=== PATIENT | male | born 1975 | race Caucasian/White ===

== ENCOUNTER 2022-11-20 17:15 | Outpatient (REF) | payer MEDICAID, SELFPAY ==
[2022-11-20 22:39] LABS: HCT 40.6 % (40.0-50.0); HGB 14.1 g/dL (13.5-17.5); MCH 29.5 pg (27.0-33.0); MCHC 34.7 % (32.0-36.0); MCV 85 fL (80-95); MPV 12.1 fL (8.0-11.0); Platelet Count 157 10^3/uL (130-400); RBC 4.78 10^6/uL (4.36-5.78); RDW 11.9 % (11.8-14.1); RDW-SD 36.5 fL; WBC 5.62 10^3/uL (4.4-10.8)
[2022-11-20 22:56] LABS: ALT 111 U/L (16-63); AST 76 U/L (15-37); Albumin 3.6 g/dL (3.4-5.0); Alkaline Phosphatase 72 U/L (46-116); Anion Gap 6.5 mmol/L (3-11); BUN 21 mg/dL (7-18); Bilirubin, Total 0.3 mg/dL (0.2-1.0); CO2 29.5 mmol/L (21.0-32.0); CREATININE 0.9 mg/dL (0.70-1.30); Calcium 8.9 mg/dL (8.5-10.1); Calculated LDL 81 mg/dL (<100); Chloride 103 mmol/L (98-107); Cholesterol 153 mg/dL (<200); Estimated GFR 106.01 (mL/min/1.73m2); Glucose 121 mg/dL (74-106); HDL Cholesterol 43 mg/dL (40-60); Potassium 3.9 mmol/L (3.5-5.1); Sodium 139 mmol/L (136-145); TSH 1.22 uIU/mL (0.36-3.74); Total Protein 7.3 g/dL (6.4-8.2); Triglyceride 148 mg/dL (<150)
== END 2022-11-20 17:16 | disposition home or self-care (01) ==
LOC: NCHCN 17:15
PROVIDERS: PCP Nurse Practitioner Family; Visit Provider Family Medicine
DX: Z00.00 Encounter for general adult medical examination without abnormal findings (principal); Z13.29 Encounter for screening for other suspected endocrine disorder; Z13.220 Encounter for screening for lipoid disorders
CPT/HCPCS: 80053; 80061; 85027; 84443

== ENCOUNTER 2024-06-04 18:35 | Outpatient (REF) | payer MEDICAID, SELFPAY ==
[2024-06-04 20:57] LABS: Abs Immature Grans 0.04 10^3/uL (0.0-0.06); Absolute Basophil Count 0.02 10^3/uL (0.0-0.2); Absolute Eosinophil Count 0.07 10^3/uL (0.0-0.7); Absolute Lymphocyte Count 0.76 10^3/uL (1.2-3.4); Absolute Monocyte Count 0.85 10^3/uL (0.1-0.8); Absolute Neutrophil Count 5.63 10^3/uL (1.2-6.7); Basophils % 0.3 %; Eosinophils % 0.9 %; HCT 33.1 % (40.0-50.0); HGB 10.7 g/dL (13.5-17.5); Immature Grans % 0.5 %; Lymphocytes % 10.3 %; MCH 27.8 pg (27.0-33.0); MCHC 32.3 % (32.0-36.0); MCV 86 fL (80-95); MPV 11.2 fL (8.0-11.0); Monocytes % 11.5 %; Neutrophils % 76.5 %; Platelet Count 156 10^3/uL (130-400); RBC 3.85 10^6/uL (4.36-5.78); RDW-SD 40.8 fL; WBC 7.37 10^3/uL (4.4-10.8)
== END 2024-06-04 18:36 | disposition home or self-care (01) ==
LOC: NCHCN 18:35
PROVIDERS: PCP Nurse Practitioner Family; Visit Provider Family Medicine
DX: R50.9 Fever, unspecified
CPT/HCPCS: 85025; 86664; 86665

== ENCOUNTER 2024-06-06 14:19 | Outpatient (REF) | payer MEDICAID, SELFPAY ==
[2024-06-06 20:52] LABS: Abs Immature Grans 0.06 10^3/uL (0.0-0.06); Absolute Basophil Count 0.02 10^3/uL (0.0-0.2); Absolute Eosinophil Count 0.03 10^3/uL (0.0-0.7); Absolute Monocyte Count 0.85 10^3/uL (0.1-0.8); Absolute Neutrophil Count 5.59 10^3/uL (1.2-6.7); Basophils % 0.3 %; Eosinophils % 0.4 %; HGB 10.7 g/dL (13.5-17.5); Immature Grans % 0.8 %; Lymphocytes % 8.4 %; MCH 27.7 pg (27.0-33.0); MCHC 32.4 % (32.0-36.0); MCV 86 fL (80-95); MPV 11.2 fL (8.0-11.0); Monocytes % 11.9 %; Neutrophils % 78.2 %; Platelet Count 193 10^3/uL (130-400); RBC 3.86 10^6/uL (4.36-5.78); RDW-SD 40.6 fL; WBC 7.15 10^3/uL (4.4-10.8)
[2024-06-06 21:00] LABS: Total Iron Binding Capacity 219 ug/dL (250-450)
[2024-06-06 21:28] LABS: Ferritin 295 ng/mL (26-388); Folate 10.3 ng/mL (8.6-20.0); Vitamin B12 1089 pg/mL (193-986)
[2024-06-09 09:42] LABS: EBNA IgG Negative (Negative); EBV Interpretation (See Note); VCA IgG Positive (Negative); VCA IgM Negative (Negative)
[2024-06-11 10:32] LABS: CMV Ab, IgG Negative (Negative); CMV Ab, IgM Negative (Negative)
== END 2024-06-06 14:20 | disposition home or self-care (01) ==
LOC: NCHCN 14:19
PROVIDERS: PCP Nurse Practitioner Family; Visit Provider Family Medicine
DX: R53.83 Other fatigue (principal)
CPT/HCPCS: 82607; 82728; 82746; 83550; 85025; 86644; 86645; 86664; 86665

== ENCOUNTER 2024-07-02 13:13 | Outpatient (REF) | payer MEDICAID, SELFPAY ==
[2024-07-02 14:21] LABS: HCT 37.6 % (40.0-50.0); HGB 12.2 g/dL (13.5-17.5); MCH 26.9 pg (27.0-33.0); MCHC 32.4 % (32.0-36.0); MCV 83 fL (80-95); Platelet Count 231 10^3/uL (130-400); RBC 4.53 10^6/uL (4.36-5.78); RDW 13.6 % (11.8-14.1); RDW-SD 41.3 fL; WBC 7.83 10^3/uL (4.4-10.8)
[2024-07-02 14:33] LABS: ALT 52 U/L (16-63); AST 33 U/L (15-37); Alkaline Phosphatase 142 U/L (46-116); Anion Gap 4.3 mmol/L (3-11); BUN 16 mg/dL (7-18); Bilirubin, Total 0.42 mg/dL (0.2-1.0); CO2 29.7 mmol/L (21.0-32.0); CREATININE 0.9 mg/dL (0.70-1.30); Calcium 9.3 mg/dL (8.5-10.1); Chloride 103 mmol/L (98-107); Glucose 103 mg/dL (74-106); Potassium 4.8 mmol/L (3.5-5.1); Sodium 137 mmol/L (136-145); Total Protein 7.8 g/dL (6.4-8.2)
== END 2024-07-02 13:14 | disposition home or self-care (01) ==
LOC: NCHCN 13:13
PROVIDERS: PCP Nurse Practitioner Family; Visit Provider Family Medicine
DX: R53.83 Other fatigue (principal)
CPT/HCPCS: 80053; 85027